=== PATIENT | male | born 1940 | race Caucasian/White ===

== ENCOUNTER → 2017-11-25 | Outpatient (CLI) | payer MEDICARE, OTHER ==
[~2017-11-25] MED LIST: CLOB.05TC TOP; D3-20002000 UNIT PO; DIPH50 PO; DOCU100 PO; Dazidox10 MG PO; FAMC500 PO; FINA5 PO; FOLI1 PO; GABA100 PO; MYCO250 PO; Melatonin5 M1 PO; Prednisone20 MG PO; TAMS.4ER PO; TRIA80TC TOP; VERA120 PO
[2017-11-25 19:40] LABS: Percent Saturation 44.3 % (20.0-50.0)
[2017-11-25 19:48] LABS: Albumin, Blood 3.4 g/dL (3.4-5.0); Albumin/Globulin Ratio 1.4 (0.8-1.8); Bilirubin, Total 0.6 mg/dL (0.1-1.0); Bun/Creatinine Ratio 18.4 (12.0-20.0); Calcium, Blood 8.4 mg/dL (8.5-10.1); Creatinine, Blood 1.9 mg/dL (0.60-1.20); Globulin, Blood 2.4 g/dL (2.2-4.0); Potassium, Blood 4.9 mmol/L (3.5-5.5); Total Protein, Blood 5.8 g/dL (6.4-8.2)
== END | disposition home or self-care (01) ==
LOC: LAB SHORT 16:30
PROVIDERS: Internal Medicine Hematology & Oncology
DX: D50.9 Iron deficiency anemia, unspecified (principal)
CPT/HCPCS: 80053; 82728; 83540; 83550

== ENCOUNTER → 2018-03-15 | Outpatient (CLI) | payer MEDICARE, OTHER ==
[2018-03-15 18:44] LABS: Albumin, Blood 3.1 g/dL (3.4-5.0); Bilirubin, Total 0.5 mg/dL (0.1-1.0); Bun/Creatinine Ratio 20.6 (12.0-20.0); Calcium, Blood 9.1 mg/dL (8.5-10.1); Creatinine, Blood 1.55 mg/dL (0.60-1.20); Potassium, Blood 5.2 mmol/L (3.5-5.5); Total Protein, Blood 6.1 g/dL (6.4-8.2)
== END | disposition home or self-care (01) ==
LOC: LAB SHORT 18:05 → LAB 18:05
PROVIDERS: Internal Medicine Hematology & Oncology
DX: L12.0 Bullous pemphigoid (principal)
CPT/HCPCS: 80053

== ENCOUNTER → 2018-04-19 | Outpatient (CLI) | payer MEDICARE, OTHER | LOC: LAB SHORT 16:00 | DX: D48.5 Neoplasm of uncertain behavior of skin (principal); R63.4 Abnormal weight loss; E78.5 Hyperlipidemia, unspecified; E11.40 Type 2 diabetes mellitus with diabetic neuropathy, unspecified; D50.9 Iron deficiency anemia, unspecified; D63.1 Anemia in chronic kidney disease; L12.0 Bullous pemphigoid; C25.9 Malignant neoplasm of pancreas, unspecified | CPT/HCPCS: 82378 ==

== ENCOUNTER → 2018-06-24 | Outpatient (CLI) | payer MEDICARE, OTHER ==
[2018-06-24 16:51] LABS: Percent Saturation 42.2 % (20.0-50.0)
[2018-06-24 17:06] LABS: Albumin, Blood 3.2 g/dL (3.4-5.0); Albumin/Globulin Ratio 1.1 (0.8-1.8); Bilirubin, Total 0.5 mg/dL (0.1-1.0); Bun/Creatinine Ratio 23.9 (12.0-20.0); Calcium, Blood 9.3 mg/dL (8.5-10.1); Creatinine, Blood 2.13 mg/dL (0.60-1.20); Globulin, Blood 2.8 g/dL (2.2-4.0)
== END | disposition home or self-care (01) ==
LOC: LAB 13:01 → LAB SHORT 13:01
PROVIDERS: Internal Medicine Hematology & Oncology
DX: L12.0 Bullous pemphigoid (principal); D50.9 Iron deficiency anemia, unspecified
CPT/HCPCS: 80053; 83540; 83550

== ENCOUNTER → 2018-12-15 | Outpatient (CLI) | payer MEDICARE, OTHER ==
[~2018-12-15] MED LIST changes: +ALPR.5 PO; +BUME2 PO; +CVS STOOL SOFT PO; +EPIPEN0.3 MG/0.3 IM; +FURO20 PO; +Ferrous Glucon324 M1 PO; +LIDOCARE1 EACH TOP; +ONDA4ODT MM; +OXYC10TA19 PO; +PRED20 PO; +VERA120ERB PO
[2018-12-15 17:27] LABS: U Amphetamine Screen Not Detected; U Barbituate Screen Not Detected; U Benzodiazapine Screen Not Detected; U Buprenorphine Screen Not Detected; U Cannabinoids Screen Not Detected; U Cocaine Screen Not Detected; U Methadone Screen Not Detected; U Methamphetamine Screen Not Detected; U Opiates Screen Not Detected; U Oxycodone Screen DETECTED; U Phencyclidine Screen Not Detected; U Propoxyphene Screen Not Detected
== END | disposition home or self-care (01) ==
LOC: LAB SHORT 16:39 → LAB 16:39
PROVIDERS: Internal Medicine Hematology & Oncology
DX: F11.20 Opioid dependence, uncomplicated (principal); Z91.89 Other specified personal risk factors, not elsewhere classified
CPT/HCPCS: G0480

== ENCOUNTER 2018-12-20 00:03 | Day surgery (SDC) | payer MEDICARE, OTHER ==
[~2018-12-20 00:03] MED LIST changes: -ALPR.5 PO; -BUME2 PO; -CVS STOOL SOFT PO; -EPIPEN0.3 MG/0.3 IM; -FURO20 PO; -Ferrous Glucon324 M1 PO; -LIDOCARE1 EACH TOP; -ONDA4ODT MM; -OXYC10TA19 PO; -PRED20 PO; -VERA120ERB PO
[2018-12-20] MEDS ORDERED: FURO20 PO (15:29)
[2018-12-20] MEDS ORDERED: Ferrous Glucon324 M1 PO (15:31)
[2018-12-20] MEDS ORDERED: TAMS.4ER PO (15:31)
[2018-12-20] MEDS ORDERED: LIDOCARE1 EACH TOP (15:32)
[2018-12-20] MEDS ORDERED: CVS STOOL SOFT PO (15:52)
[2018-12-20] MEDS ORDERED: ONDA4ODT MM (15:52)
[2018-12-20] MEDS ORDERED: GABA100 PO ×2 (15:53→15:59)
[2018-12-20] MEDS ORDERED: FINA5 PO (15:53)
[2018-12-20] MEDS ORDERED: OXYC10TA19 PO (15:53)
[2018-12-20] MEDS ORDERED: VERA120ERB PO (15:54)
[2018-12-20] MEDS ORDERED: FOLI1 PO (15:54)
[2018-12-20] MEDS ORDERED: ALPR.5 PO (15:55)
[2018-12-20] MEDS ORDERED: FAMC500 PO (15:57)
[2018-12-20] MEDS ORDERED: PRED20 PO (15:57)
[2018-12-20] MEDS ORDERED: MYCO250 PO ×2 (15:57→16:00)
[2018-12-20] MEDS ORDERED: EPIPEN0.3 MG/0.3 IM (15:58)
[2018-12-20] MEDS ORDERED: BUME2 PO ×2 (15:58→15:59)
[2018-12-20] MEDS ORDERED: VERA120 PO (16:00)
== END 2018-12-20 23:03 | disposition home or self-care (01) ==
LOC: ATC 00:03
DX: D50.9 Iron deficiency anemia, unspecified (principal); D63.1 Anemia in chronic kidney disease; N18.3 Chronic kidney disease, stage 3 (moderate); I12.9 Hypertensive chronic kidney disease with stage 1 through stage 4 chronic kidney disease, or unspecified chronic kidney disease; E11.22 Type 2 diabetes mellitus with diabetic chronic kidney disease; Z79.4 Long term (current) use of insulin; Z79.899 Other long term (current) drug therapy
CPT/HCPCS: 36415; 36430; 86850; 86900; 86901; 86923; J7050; P9016

== ENCOUNTER 2018-12-27 13:20 | Day surgery (SDC) | payer MEDICARE, OTHER ==
[~2018-12-27] VITALS: Ht 177.8 cm; Wt 80.1 kg
[~2018-12-27 13:20] MED LIST changes: +ALPR.5 PO; +BUME2 PO; +CVS STOOL SOFT PO; +EPIPEN0.3 MG/0.3 IM; +FURO20 PO; +Ferrous Glucon324 M1 PO; +LIDOCARE1 EACH TOP; +ONDA4ODT MM; +OXYC10TA19 PO; +PRED20 PO; +VERA120ERB PO
--- NOTE | 2018-12-27 14:06 | NUR ---
12/27/18 1406 Edith [facility] USED FOR IRRIGATION
== END 2018-12-27 14:52 | disposition home or self-care (01) ==
LOC: ORSCSDS 13:20
PROVIDERS: Internal Medicine Gastroenterology
PROC: 0DB88ZX Excision of Small Intestine, Via Natural or Artificial Opening Endoscopic, Diagnostic (ICD-10-PCS; principal; 2018-12-27 14:30)
DX: D64.9 Anemia, unspecified (principal); K21.0 Gastro-esophageal reflux disease with esophagitis; E11.9 Type 2 diabetes mellitus without complications; I10 Essential (primary) hypertension; E78.5 Hyperlipidemia, unspecified; J45.909 Unspecified asthma, uncomplicated; F41.8 Other specified anxiety disorders; G47.33 Obstructive sleep apnea (adult) (pediatric); Z87.891 Personal history of nicotine dependence; Z79.899 Other long term (current) drug therapy
CPT/HCPCS: 82947; 88305; 88342; J7120

== ENCOUNTER → 2019-03-30 | Outpatient (CLI) | payer MEDICARE, OTHER ==
[2019-03-30 19:34] LABS: Albumin, Blood 3.1 g/dL (3.4-5.0); Albumin/Globulin Ratio 1.4 (0.8-1.8); Bilirubin, Total 0.5 mg/dL (0.1-1.0); Bun/Creatinine Ratio 23.2 (12.0-20.0); Calcium, Blood 8.1 mg/dL (8.5-10.1); Creatinine, Blood 1.94 mg/dL (0.60-1.20); Globulin, Blood 2.2 g/dL (2.2-4.0); Potassium, Blood 4.8 mmol/L (3.5-5.5); Total Protein, Blood 5.3 g/dL (6.4-8.2)
== END | disposition home or self-care (01) ==
LOC: LAB SHORT 18:53 → LAB 18:53
PROVIDERS: Internal Medicine Hematology & Oncology
DX: D50.9 Iron deficiency anemia, unspecified (principal)
CPT/HCPCS: 80053

== ENCOUNTER → 2019-05-19 | Outpatient (CLI) | payer MEDICARE, OTHER ==
[~2019-05-19] MED LIST changes: -CVS STOOL SOFT PO; +Senna-Docusate1 EACH PO
[2019-05-19 15:33] LABS: Percent Saturation 45.3 % (20.0-50.0)
== END | disposition home or self-care (01) ==
LOC: LAB 15:11 → LAB SHORT 15:11
PROVIDERS: Internal Medicine Hematology & Oncology
DX: N18.9 Chronic kidney disease, unspecified (principal); D63.1 Anemia in chronic kidney disease
CPT/HCPCS: 82728; 83540; 83550

== ENCOUNTER → 2019-07-13 | Outpatient (CLI) | payer MEDICARE, OTHER ==
[2019-07-13 17:07] LABS: Percent Saturation 62.6 % (20.0-50.0)
== END | disposition home or self-care (01) ==
LOC: LAB SHORT 15:52 → LAB 15:52
PROVIDERS: Internal Medicine Hematology & Oncology
DX: D50.9 Iron deficiency anemia, unspecified (principal)
CPT/HCPCS: 83540; 83550

== ENCOUNTER 2019-08-21 21:22 | Observation (INO) | payer MEDICARE, OTHER ==
[~2019-08-21] VITALS: Ht 177.8 cm; Wt 72.6 kg
[2019-08-21 22:03] LABS: BASOPHILS ABSOLUTE AUTO 0.03 K/mm3 (0.00-0.23); BASOPHILS PERCENT AUTO 0 % (0-2); EOSINOPHILS ABSOLUTE AUTO 0.16 K/mm3 (0.00-0.68); EOSINOPHILS PERCENT AUTO 2 % (0-6); Hemoglobin 6.9 g/dL (13.5-17.5); IMMATURE GRAN ABSOLUTE AUTO 0.42 K/mm3 (0.00-0.10); IMMATURE GRAN PERCENT AUTO 6 % (0-1); LYMPHOCYTES PERCENT AUTO 13 % (21-46); MONOCYTES ABSOLUTE AUTO 0.49 K/mm3 (0.16-1.47); MONOCYTES PERCENT AUTO 7 % (4-13); NEUTROPHILS ABSOLUTE AUTO 4.97 K/mm3 (1.96-9.15); NEUTROPHILS PERCENT AUTO 71 % (41-73); Platelet Count 321 K/mm3 (150-400); White Blood Cell Count 6.97 K/mm3 (4.00-11.30)
[2019-08-21 22:18] LABS: Hematocrit 24.2 % (37.0-53.0); Mean Corpuscular HGB 20.3 pg (26.0-34.0); Mean Corpuscular HGB Conc 28.5 g/dL (31.5-36.5); Mean Corpuscular Volume 71 fL (80-100); RDW Standard Deviation 64.4 fL (35.1-46.3)
[2019-08-21 22:19] LABS: Bun/Creatinine Ratio 23.9 (12.0-20.0); Calcium, Blood 8.7 mg/dL (8.5-10.1); Creatinine, Blood 2.47 mg/dL (0.60-1.20); Potassium, Blood 4.7 mmol/L (3.5-5.5)
--- NOTE | 2019-08-22 16:59 | NUR ---
SHIFT SUMMARY: PT ADMITTED FROM THE ED THIS MORNING AFTER RECEIVING BLOOD IN THE ER AND PER THE ED RN SPIKED A FEVER AT THE END OF THE SECOND UNIT. PT IS A/O X 4. UPON ARRIVAL PT APPEARS WEAK AND DECONDITIONED. SON IN LAW IS AT BEDSIDE AND STATES THAT PT LIVES WITH HIM AND HIS AND HE DOES EVERYTHING HIMSELF. WHEN ASKED ABOUT MEAL PREP SON IN LAW STATES THAT THEY PROVIDE EASY TO MAKE MICROWAVE AND SNACK TYPE MEALS. PT CLOTHES WERE DIRTY AND THE UNDERWEAR WERE SATURATED IN URINE AND PT REPORTS THAT HE "LEAKS" URINE. THIS NURSE AND MIXER PIGMENT ASSISTED PT TO TAKE AND SHOWER AND THE SON IN LAW REPORTS THAT THIS WAS THE FIRST SHOWER HES HAD IN YEARS AND THAT HE TYPICALLY TAKES SPONGE BATHS. 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 BOTH AREAS WERE CLEANSED AND DRESSINGS APPLIED, PER DR FUNK. THE SKIN TO PT BLE IS DRY AND SCALY, THIS NURSE RECEIVED ORDERS FOR AMLACTIN CREAM WHICH WAS APPLIED. PT HAS SIGNIFICANT EDEMA TO BLE, SO HIS FEET/LEGS WERE ELEVATED ON PILLOWS. PT MEAL TRAY WAS ORDERED AND PT ATE ALL OF HIS FOOD PLUS A SANDWICH AND ICE CREAM AND MULTIPLE DRINKS OUT OF THE PANTRY. PT REPORTS THAT HE HAS HAD CHRONIC ANEMIA FOR YEARS AND HAS BEEN TX BY HIS PCP. PT IS ABLE TO MAKE HIS NEEDS KNOWN AND VERBALIZES AN UNDERSTANDING OF THE USE OF THE CALL LIGHT.
--- NOTE | 2019-08-23 05:50 | NUR ---
ENCOUNTER WITH PTS DAUGHTER IN-LAW THIS NURSE ENTERED PT ROOM AT AROUND 2044 TO ADMINISTER EVENING MEDICATIONS TO PT. THE PTS SON WAS ASKING QUESTIONS REGARDING WHAT MEDICATIONS WE WERE ADMINISTERING FOR PT AND WHAT THEY WERE FOR. THIS NURSE PROVIDED EDUCATION REGARDING 2100 MEDICATIONS THAT WERE DUE. THE SON THEN ASKED REPEADEDLY ABOUT THE PTS OXYCODONE AND STATED THAT THE PT NEEDS HIS PAIN MEDICATIONS BECAUSE THE PT IS IN WITHDRAWLS. THE SON ALSO STATED THAT WHATEVER WAS WRONG WITH THE PT OCCURRED AFTER THE PT WAS IN THE HOSPITAL. THIS NURSE ASKED THE SON WHAT HE WAS REFERRING TOO WHEN HE WAS TALKING ABOUT WHAT WAS WRONG WITH THE PT. THE SON AT THAT TIME PUT HIS HEAD DOWN AND WOULD NOT SPEAK. THE SON STATED THAT HIS WAS ON THE WAY AND THAT SHE WAS THE CARE PROVIDER FOR HIS DAD AND THAT WE WOULD NEED TO SPEAK WITH HER. THIS NURSE APPOLOGIZED FOR WHATEVER NEGATIVE EXPERIENCE THAT HE HAD WITH THEIR STAY SO FAR. AT APPROXIMATELY 2114 THE PTS DAUGHTER IN-LAW ARRIVED. THIS NURSE AND NEW GRAD WHO IS ORIENTATING ENTERED THE ROOM TO ADMINISTER SCHEDULED DOSE OF IRON THIS WAS FORGOTTEN WHEN ENTERED THE ROOM THE FIRST TIME AND ADMINISTERED MEDICATIONS. THE DAUGHTER IN-LAW IMMEDIATELY GOT VERY CLOSE TO THIS NURSES FACE AND STATED, WHAT EXACTLY DO YOU THINK YOU ARE GIVING HIM? THIS NURSE EXPLAINED THE MEDICATION AND WHAT IT WAS FOR, AND THE DAUGHTER IN-LAW BEGAN RAISING HER VOICE AND ASKING ARE YOU EVEN GIVING HIM HIS HOME MEDICATIONS, ARE YOU GIVING HIM HIS PAIN MEDICATIONS. THIS NURSE ATTEMPTED TO RESPOND HOWEVER THE DAUGHTER IN-LAW WOULD NOT ALLOW THIS NURSE TO SPEAK. THE PT DID HAVE ORDERS FOR PAIN MEDICATION, BUT THE PT DENIED HAVING ANY PAIN UPON ASSESSMENT SINCE ON SHIFT. HOWEVER, WAS UNABLE TO DISCUSS THIS WITH DAUGHTER IN-LAW SHE WOULD NOT ALLOW THIS NURSE TO SPEAK. DAUGHTER IN-LAW GOT CLOSER TO THIS NURSE AND BEGAN TO POINT FINGER IN THIS NURSE STATING, YOU GAVE HIM THE BLOOD THAT GAVE HIM THE REACTION, AND YOU HAVE NOT GIVEN HIM HIS PAIN MEDICATION, AND YOU TREATED MY LIKE A CRIMINAL, AND WERE COMPLETELY INAPPROPRIATE. THIS NURSE AGAIN ATTEMPTED TO ADVISE DAUGHTER IN-LAW THAT THIS NURSE DID NOT HAVE THESE PRIOR ENCOUNTERS BUT AGAIN WAS NOT ABLE TO SPEAK. THE DAUGHTER IN-LAW CONTINUED CLOSE TO THIS NURSE FACE WITH FINGER IN THIS NURSE FACE STATED YOU ARE TRYING TO SAY THAT WE ARE NOT FEEDING HIM, THAT WE ARE NOT BATHING HIM AND THAT WE ARE NEGLECTING AND ABUSING HIM. SHE CONTINUED, MY IS A [employer] HAND AND HAS NOT HAD A DAY OFF IN A YEAR AND WAS ONLY HERE BECAUSE I HAVE MS AND WASN'T FEELING GOOD. THE DAUGHTER IN-LAW THEN STATED, I WANT THE PAPERWORK AND I AM TAKING MY DAD HOME, SHE THEN LOOKED AT THE PT AND STATED "DO YOU WANT TO GO HOME" AND THE PT STATED "WELL, YA, I WOULD LIKE TO GO HOME" AND SHE STATED "THEN THAT WHAT WE WILL DO, GET THE PAPERWORK, WE ARE TAKING HIM HOME NOW!" THIS NURSE PLACED HAND ON SHOULDER OF DAUGHTER IN-LAW AND AGAIN APPOLOGIZED. DAUGHTER IN-LAW AGAIN STATED, GET THE PAPERWORK. CHARGE NURSE NOTIFIED AND ENTERED ROOM AT A LATER TIME.
--- NOTE | 2019-08-23 06:11 | NUR ---
08/22/19 2200 PT AND FAMILY VOICED CONCERNS REGARDING TREATMENT OF THEM ON THE MEDICAL FLOOR AND WHILE THEY WERE IN THE ER. THEY REPORTED THAT STAFF ASKED QUESTIONS REGARDING THEIR LIVING SITUATION AND THEIR CARE OF THE PATIENT. THE FAMILY GOT THE IMPRESSION THAT THE QUESTIONS FROM THE STAFF WERE ACCUSATORY OF THEM NOT TAKING CARE OF THE PATIENT WELL ENOUGH. THE FAMILY ALSO DID NOT UNDERSTAND WHY PHOTOS OF THE WOUNDS ON THE PATIENT WERE BEING DONE AND THEY GOT THE IMPRESSION IT WAS TO DOCUMENT THE INJURIES AND ACCUSITORY OF THEM CAUSING THE INJURIES TO THE PATIENT. I EXPLAINED THAT THE NURSES QUESTIONS ABOUT THEIR HOME SITUATION WERE MOST LIKELY TO FIND OUT IF THEY NEEDED ANY HELP AT HOME AND I APOLOGIZED FOR THEM FEELING LIKE IT WAS ACCUSITORY TOWARDS THEM. I ALSO EXPLAINED ABOUT OUR POLICY OF DOCUMENTING ANY WOUNDS ON ANY PATIENT ON ADMISSION AND THROUGHOUT THEIR STAY TO DOCUMENT THE WOUND HEALING PROGRESS WHILE THEY ARE HERE. I APLOLOGIZED THAT IT MADE THEM FEEL LIKE IT WAS ACCUSITORY TOWARDS THEM. THE FAMILY EXPLAINED THAT THE PATIENT HAS A RARE IMMUNO DISORDER AND THEY HAVE A SPECIFIC CARE PLAN FOR THE PATIENT THAT WORKS WELL FOR HIM. THEY FELT LIKE THE STAFF AND DR'S DID NOT LISTEN TO THEM REGARDING THE DISORDER, THE CHRONIC CONDITIONS THAT WENT ALONG WITH THIS DISORDER, OR ABOUT THERE INSTRUCTIONS REGARDING THEIR CARE PLAN FOR THE PATIENT. I APOLOGIZED THAT THEY FELT LIKE THEY WERE NOT LISTENED TO. I ASKED IF THERE WAS ANYTHING I COULD DO TO MAKE THEM FEEL COMFORTABLE WITH THE PATIENT'S CARE HERE OR TO MAKE THE PATIENT FEEL COMFORTABLE WITH HIS CARE HERE. I SUGGESTED MAYBE PUTTING IN INSTRUCTIONS ON THE PATIENT'S ORDERS/CARE PLAN ON HIS CHART IN THE COMPUTER SO THAT WE FOLLOW WHAT THEIR CARE PLAN WAS. THEY DECLINED THIS STATING THAT THEY WERE ALREADY PRETTY FRUSTRATED AND WOULD JUST LIKE TO TAKE THE PT HOME. THEY REPORTED THAT THEY DID NOT FEEL LIKE ER HAD FOLLOWED PROTOCOL. I EXPLAINED TO THEM THAT SINCE THIS WAS MEDICAL FLOOR WE NEEDED TO DEFER THAT TO THE PATIENT ADVOCATE. I LET THEM KNOW HOW TO GET AHOLD OF THE PATIENT ADVOCATE AND EXPLAINED THAT THEY WOULD HAVE ACCESS TO THE PATIENT'S RECORDS AND WOULD BE ABLE TO ANSWER ANY QUESTIONS AND CONCERNS THEY HAD OVER THE PATIENT'S CARE IN THE ER AND ON OUR FLOOR. I SUGGESTED TO THEM THAT SINCE THE PATIENT HAD A RARE IMMUNO DISORDER AND BECAUSE THEY DO HAVE A SPECIFIC CARE PLAN, THAT MAYBE THEY COULD TYPE UP A CARE PLAN AND KEEP A COPY WITH THEM SO THAT WHATEVER FACILITY THEY WERE AT WOULD BE ABLE TO GET A COPY AND KNOW AHEAD OF TIME THE INFORMATION THAT THE FAMILY AND PATIENT WANTED THEM TO KNOW. THE FAMILY SEEMED VERY RECEPTIVE TO THIS IDEA. I DID CALL THE [facility] TO SEE IF THEY COULD TALK TO THE FAMILY AND THE PATIENT AND POSSIBLY GET AN OFFICIAL DISCHARGE ORDER SINCE THEY HAD ORIGINALLY ONLY CAME TO THE ER FOR A TRANSFUSION. HOWEVER LISSETTE REPORTED BACK TO ME THAT AFTER SPEAKING WITH DR CLARK HE INSTRUCTED HER THAT "WE DO NOT DISCHARGE PATIENT'S AT NIGHT". HOWEVER, WE DO DISCHARGE PATIENT'S AT NIGHT, I THINK THIS MIGHT BE A PERSONAL PREFERENCE OF THE DR? I EXPLAINED THIS TO THE FAMILY, THEY STILL WANTED TO GO AHEAD AND TAKE THE PATIENT HOME. I EXPLAINED THE THE RISKS/BENEFITS OF TAKING THE PATIENT HOME TO THE FAMILY AND THE PATIENT. THE PATIENT SIGNED THE AMA FORM. THEY DID THANK ME FOR TALKING WITH THEM AND HELPING THEM OUT MUCH WE COULD.
== END 2019-08-22 22:15 | disposition left against medical advice (07) ==
LOC: ER 21:22 → MEDS 21:23 → ER 08-22 10:12 → MEDS 08-22 10:12
PROVIDERS: Physician Assistant Medical; ADMIT Internal Medicine
DX: T80.92XA Unspecified transfusion reaction, initial encounter (principal); L12.0 Bullous pemphigoid; N18.3 Chronic kidney disease, stage 3 (moderate); D63.1 Anemia in chronic kidney disease; Z87.891 Personal history of nicotine dependence; Z79.899 Other long term (current) drug therapy
CPT/HCPCS: 36415; 36430; 80048; 85025; 86850; 86900; 86901; 86923; 99284-25; A9270; G0378; J7030; J7517; P9016